=== PATIENT | male | born 1970 | race American Indian/Alaskan Native ===

== ENCOUNTER 2021-03-12 12:24 | Emergency (ER) | payer OTHER ==
[2021-03-12 12:52] VITALS: BP 133/88
[2021-03-12] MEDS ORDERED: ONDANSETRON 4 MG/2 ML INJ IV ONE (13:18)
[2021-03-12] MEDS ORDERED: MORPHINE 4 MG/1 ML INJ IV ONE (13:18)
[2021-03-12] MEDS ORDERED: SODIUM CHLORIDE 0.9% 1000 ML 1,000 ML IV ONE (13:18)
[2021-03-12 14:16] LABS: Bilirubin,Urine NEG (Negative); Blood,Urine NEG (Negative); Color,Urine Yellow (Yellow); Mucus,Urine 2+ /HPF
[2021-03-12 14:21] LABS: Basophils % (Auto) 0.6 % (0.0-1.8); Eosinophils % (Auto) 0.3 % (0.0-4.3); Hematocrit 43.3 % (35.5-45.6); Hemoglobin 14.9 gm/dl (11.8-15.2); Lymphocytes % (Auto) 19.2 % (13.4-35.0); Mean Corpuscular HGB Conc 34 % (32-34); Mean Corpuscular Volume 94 fl (84-94); Monocytes # (Auto) 0.2 K/mm3 (0.0-0.8); Monocytes % (Auto) 4.3 % (0.0-7.3); Platelet Count 152 K/mm3 (140-440); Red Blood Count 4.62 M/mm3 (3.65-5.03); Red Cell Distribution Width 13.4 % (13.2-15.2)
--- NOTE | 2021-03-12 14:33 | Emergency Department Report ---
ED General Adult HPI - General Chief complaint: Nausea/Vomiting/Diarrhea Stated complaint: VOMITING ALL MORNING Time Seen by Provider: 03/12/21 13:16 Source: patient Mode of arrival: Ambulatory Limitations: No Limitations - History of Present Illness Initial comments: Patient is a 51-year-old male presents emergency room complaints of generalized abdominal pain that began around 7 AM this morning. He has associated nausea and vomiting. He states he has had multiple episodes of vomiting. He states he had approximately 2 episodes of diarrhea. He denies any fever, hematochezia, melena, hematemesis, urinary symptoms, dysuria, urinary retention, pain or swelling in the testicles, back pain, penile discharge. Past medical history of HIV and is on his antivirals and reports that he is undetectable. No allergies to medications. Severity scale (0 -10): 4 - Related Data Previous Rx's Medication Instructions Recorded Last Taken Type Hyoscyamine Subl [Levsin Sl 0.125 0.125 mg SL Q6HR PRN #10 tab 03/12/21 Unknown Rx TAB] Ondansetron [Zofran Odt] 4 mg PO Q8HR PRN #10 tab.rapdis 03/12/21 Unknown Rx Allergies Allergy/AdvReac Type Severity Reaction Status Date / Time No Known Allergies Allergy Unverified 03/12/21 12:40 ED Review of Systems ROS: Stated complaint: VOMITING ALL MORNING Other details as noted in HPI Comment: All other systems reviewed and negative ED Past Medical Hx - Past Medical History Previous Medical History?: No - Surgical History Past Surgical History?: No - Medications Home Medications: Home Medications Medication Instructions Recorded Confirmed Last Taken Type Hyoscyamine Subl [Levsin Sl 0.125 0.125 mg SL Q6HR PRN #10 tab 03/12/21 Unknown Rx TAB] Ondansetron [Zofran Odt] 4 mg PO Q8HR PRN #10 tab.rapdis 03/12/21 Unknown Rx ED Physical Exam - General Limitations: No Limitations General appearance: alert, in no apparent distress - Head Head exam: Present: atraumatic, normocephalic - Eye Eye exam: Present: normal appearance - ENT ENT exam: Present: mucous membranes dry (mildly) - Respiratory Respiratory exam: Present: normal lung sounds bilaterally. Absent: respiratory distress, wheezes, rales, rhonchi, stridor, chest wall tenderness, accessory muscle use, decreased breath sounds, prolonged expiratory - Cardiovascular Cardiovascular Exam: Present: regular rate, normal rhythm, normal heart sounds. Absent: systolic murmur, diastolic murmur, rubs, gallop - GI/Abdominal GI/Abdominal exam: Present: soft, tenderness (generalized upper), normal bowel sounds. Absent: distended, guarding, rebound, rigid - Neurological Exam Neurological exam: Present: alert, oriented X3 - Psychiatric Psychiatric exam: Present: normal affect, normal mood - Skin Skin exam: Present: warm, dry, intact ED Course Vital Signs 03/12/21 03/12/21 12:42 17:08 Temperature 97.6 F 98.4 F Pulse Rate 61 89 Respiratory 18 16 Rate Blood Pressure 133/88 O2 Sat by Pulse 99 99 Oximetry ED Medical Decision Making - Lab Data Result diagrams: 03/12/21 14:02 03/12/21 14:02 Lab Results 03/12/21 03/12/21 03/12/21 Range/Units 13:48 14:02 14:02 WBC 5.4 (4.5-11.0) K/mm3 RBC 4.62 (3.65-5.03) M/mm3 Hgb 14.9 (11.8-15.2) gm/dl Hct 43.3 (35.5-45.6) % MCV 94 (84-94) fl MCH 32 (28-32) pg MCHC 34 (32-34) % RDW 13.4 (13.2-15.2) % Plt Count 152 (140-440) K/mm3 Lymph % (Auto) 19.2 (13.4-35.0) % Andrew % (Auto) 4.3 (0.0-7.3) % Eos % (Auto) 0.3 (0.0-4.3) % Baso % (Auto) 0.6 (0.0-1.8) % Lymph # (Auto) 1.0 L (1.2-5.4) K/mm3 Andrew # (Auto) 0.2 (0.0-0.8) K/mm3 Eos # (Auto) 0.0 (0.0-0.4) K/mm3 Baso # (Auto) 0.0 (0.0-0.1) K/mm3 Seg Neutrophils % 75.6 H (40.0-70.0) % Seg Neutrophils # 4.1 (1.8-7.7) K/mm3 Sodium 138 (137-145) mmol/L Potassium 3.5 L (3.6-5.0) mmol/L Chloride 103.6 (98-107) mmol/L Carbon Dioxide 23 (22-30) mmol/L Anion Gap 15 mmol/L BUN 18 (9-20) mg/dL Creatinine 0.9 (0.8-1.3) mg/dL Estimated GFR > 60 ml/min BUN/Creatinine Ratio 20 % Glucose 104 H (75-100) mg/dL Calcium 9.2 (8.4-10.2) mg/dL Total Bilirubin 0.40 (0.1-1.2) mg/dL AST 28 (5-40) units/L ALT 16 (7-56) units/L Alkaline Phosphatase 56 (35-129) units/L Total Protein 7.1 (6.3-8.2) g/dL Albumin 3.9 (3.9-5) g/dL Albumin/Globulin Ratio 1.2 % Lipase 25 (13-60) units/L Urine Color Yellow (Yellow) Urine Turbidity Clear (Clear) Urine pH 9.0 H (5.0-7.0) Ur Specific [place] 1.025 (1.003-1.030) Urine Protein 100 mg/dl (Negative) mg/dL Urine Glucose (UA) Neg (Negative) mg/dL Urine Ketones 20 (Negative) mg/dL Urine Blood Neg (Negative) Urine Nitrite Neg (Negative) Urine Bilirubin Neg (Negative) Urine Urobilinogen 2.0 (<2.0) mg/dL Ur Leukocyte Esterase Neg (Negative) Urine WBC (Auto) 2.0 (0.0-6.0) /HPF Urine RBC (Auto) 13.0 (0.0-6.0) /HPF U Epithel Cells (Auto) < 1.0 (0-13.0) /HPF Urine Mucus 2+ /HPF - Radiology Data Radiology results: report reviewed Ordering Physician: BOB MENDOZA Date of Service: 03/12/21 Procedure(s): CT abdomen pelvis w con Accession Number(s): [id number] cc: BOB MENDOZA CT OF THE ABDOMEN AND PELVIS WITH INTRAVENOUS CONTRAST INDICATION / CLINICAL INFORMATION: Mid abdominal pain with nausea and vomiting. TECHNIQUE: The patient received 100 cc Omnipaque [address] scans at this location are performed using CT dose reduction for ALARA by means of automated exposure control. COMPARISON: None available. FINDINGS: ABDOMEN: There is a 1.9 cm ovoid simple cyst in the right lobe of the liver. The spleen, gallbladder, bile ducts, pancreas, adrenal glands, kidneys and bowel demonstrate no significant abnormality. No adenopathy is present. The lung bases are clear. PELVIS: The distal ureters, urinary bladder, prostate gland and seminal vesicles are normal. There is no evidence of appendicitis or diverticulitis. No abnormal mass or fluid collection is seen. I do not identify a hernia. No acute osseous abnormality is present. IMPRESSION: No acute abnormality is identified. Signer Name: Rufus Marroquin MD Signed: 03/12/2021 3:24 PM Workstation Name: [id number] Transcribed By: RT Dictated By: Rufus Marroquin MD Electronically Authenticated By: Rufus Marroquin MD Signed Date/Time: 03/12/21 152 DD/ 20 TD/TT: Print - Medical Decision Making Patient is a 51-year-old male presents emergency room complaints of generalized abdominal pain that began around 7 AM this morning. He has associated nausea a nd vomiting. He states he has had multiple episodes of vomiting. He states he had approximately 2 episodes of diarrhea. He denies any fever, hematochezia, melena, hematemesis, urinary symptoms, dysuria, urinary retention, pain or swelling in the testicles, back pain, penile discharge. Past medical history of HIV and is on his antivirals and reports that he is undetectable. No allergies to medications. Vitals are stable. On exam patient has generalized abdominal tenderness, no guarding, no rebound, no rigidity, normal bowel sounds, no peritoneal signs. Labs showed very mild hypokalemia, given 20 mEq of K-Dur otherwise labs are stable. UA is within normal limits. CT abdomen pelvis: IMPRESSION: No acute abnormality is identified. Patient given medications on the emergent department and symptoms significantly improved, he was feeling much better ready to go home, he was able to tolerate p.o. intake without any difficulty, he had no further episodes of vomiting while in the emergency department. Discussed all results with patient and answer questions. Discussed the importance of follow-up for reexamination. Discussed strict return precautions. Patient given prescription for medications. advised patient Please take medication as prescribed as needed. Increase your fluid intake. Eat a bland liquid diet and still advance her diet as tolerated. Follow-up with your primary care doctor for reexamination. Return to emergency room immediately for any new or worsening symptoms. Critical care attestation.: If time is entered above; I have spent that time in minutes in the direct care of this critically ill patient, excluding procedure time. ED Disposition Clinical Impression: Nausea vomiting and diarrhea, Hypokalemia Disposition: TO HOME OR SELFCARE Is pt being admited?: No Does the pt Need Aspirin: No Condition: Stable Instructions: Viral Gastroenteritis, Adult, Hypokalemia Additional Instructions: Please take medication as prescribed as needed. Increase your fluid intake. Eat a bland liquid diet and still advance her diet as tolerated. Follow-up with your primary care doctor for reexamination. Return to emergency room imme diately for any new or worsening symptoms. Prescriptions: Hyoscyamine Subl [Levsin Sl 0.125 TAB] 0.125 mg SL Q6HR PRN #10 tab PRN Reason: abd cramping/diarrhea Ondansetron [Zofran Odt] 4 mg PO Q8HR PRN #10 tab.rapdis PRN Reason: nausea/vomiting Referrals: PRIMARY MD STEPHANE [Primary Care Provider] - 2-3 Days ALANNA OCHOA MD [Staff Physician] - 2-3 Days [facility] [Provider Group] - 2-3 Days Time of Disposition: 16:18 Print Language: WALLISIAN
[2021-03-12 14:36] LABS: Alanine Aminotransferase 16 units/L (7-56); Albumin 3.9 g/dL (3.9-5); BUN/Creatinine Ratio 20; Blood Urea Nitrogen 18 mg/dL (9-20); Calcium 9.2 mg/dL (8.4-10.2); Hemolysis Index 8
--- NOTE | 2021-03-12 15:29 | Cat Scan Report ---
CT OF THE ABDOMEN AND PELVIS WITH INTRAVENOUS CONTRAST INDICATION / CLINICAL INFORMATION: Mid abdominal pain with nausea and vomiting. TECHNIQUE: The patient received 100 cc Omnipaque [address] scans at this location are performed using CT dose reduction for ALARA by means of automated exposure control. COMPARISON: None available. FINDINGS: ABDOMEN: There is a 1.9 cm ovoid simple cyst in the right lobe of the liver. The spleen, gallbladder, bile ducts, pancreas, adrenal glands, kidneys and bowel demonstrate no significant abnormality. No a denopathy is present. The lung bases are clear. PELVIS: The distal ureters, urinary bladder, prostate gland and seminal vesicles are normal. There is no evidence of appendicitis or diverticulitis. No abnormal mass or fluid collection is seen. I do no t identify a hernia. No acute osseous abnormality is present. IMPRESSION: No acute abnormality is identified. Signer Name: Rufus Marroquin MD Signed: 03/12/2021 3:24 PM Workstation Name: [id number]
[2021-03-12] MEDS ORDERED: POTASSIUM CHLORIDE ER 20 MEQ TAB PO ONE (15:33)
== END 2021-03-12 17:09 | disposition home or self-care (01) ==
LOC: ED 12:24
DX: E87.6 Hypokalemia (principal); R19.7 Diarrhea, unspecified; R11.2 Nausea with vomiting, unspecified; Z79.899 Other long term (current) drug therapy
CPT/HCPCS: 36415; 74177; 80053; 81001; 83690; 85025; 96361; 96374; 96375; 99284; J2270; J2405; J7030; Q9967

== ENCOUNTER 2021-03-13 09:16 | Observation (INO) | payer OTHER ==
[2021-03-13] MEDS ORDERED: DICYCLOMINE 20 MG/2 ML INJ IM ONE (09:56)
[2021-03-13] MEDS ORDERED: LIDOCAINE VISCOUS 2% 15 ML ORAL LIQD PO ONE (09:56)
[2021-03-13] MEDS ORDERED: PANTOPRAZOLE 40 MG INJ IV ONE (09:56)
[2021-03-13] MEDS ORDERED: ALUM-MAG HYDROXIDE-SIMETHICONE 200-200-20MG/5ML ORAL LIQD 30 ML PO ONE (09:56)
[2021-03-13] MEDS ORDERED: ONDANSETRON 4 MG/2 ML INJ IV ONE (09:56)
[2021-03-13] MEDS ORDERED: SODIUM CHLORIDE 0.9% 1000 ML 1,000 ML IV ONE (09:58)
--- NOTE | 2021-03-13 10:01 | Emergency Department Report ---
ED Abdominal Pain HPI - General Chief Complaint: Nausea/Vomiting/Diarrhea Stated Complaint: STOMACH PAIN/ SOB Time Seen by Provider: 03/13/21 09:49 Source: patient Mode of arrival: Wheelchair Limitations: No Limitations - History of Present Illness Initial Comments: Patient is 51 years old male with h/o HIV. Patient presented to the ER complaining of epigastric abdominal pain, rated as 10 out of 10, sharp with no radiation. Patient also complaining of nausea and vomiting. Patient denied any fever or chills. Patient was seen here yesterday for same complaint. His labs was unremarkable except for ketones in the urine. Patient also had a CT abdomen and pelvis that showed no acute abnormalities. Patient returns today stating that his symptoms getting worse and he is not feeling better. MD Complaint: abdominal pain -: days(s) Location: epigastric Radiation: none Migration to: no migration Severity: severe Severity scale (0 -10): 8 Quality: sharp Associated Symptoms: nausea, vomiting. denies: diarrhea - Related Data Previous Rx's Medication Instructions Recorded Last Taken Type Hyoscyamine Subl [Levsin Sl 0.125 0.125 mg SL Q6HR PRN #10 tab 03/12/21 Unknown Rx TAB] Ondansetron [Zofran Odt] 4 mg PO Q8HR PRN #10 tab.rapdis 03/12/21 Unknown Rx Allergies Allergy/AdvReac Type Severity Reaction Status Date / Time No Known Allergies Allergy Verified 03/13/21 09:34 ED Review of Systems ROS: Stated complaint: STOMACH PAIN/ SOB Other details as noted in HPI Comment: All other systems reviewed and negative Constitutional: denies: chills, fever Respiratory: denies: cough, shortness of breath, SOB with exertion Cardiovascular: denies: chest pain, palpitations Gastrointestinal: abdominal pain, nausea, vomiting. denies: diarrhea, constipation, hematemesis, melena, hematochezia Musculoskeletal: denies: back pain Neurological: denies: headache, weakness, numbness, paresthesias, confusion ED Past Medical Hx - Past Medical History Previous Medical History?: No - Surgical History Past Surgical History?: No - Medications Home Medications: Home Medications Medication Instructions Recorded Confirmed Last Taken Type Hyoscyamine Subl [Levsin Sl 0.125 0.125 mg SL Q6HR PRN #10 tab 03/12/21 Unknown Rx TAB] Ondansetron [Zofran Odt] 4 mg PO Q8HR PRN #10 tab.rapdis 03/12/21 Unknown Rx ED Physical Exam - General Limitations: No Limitations General appearance: alert, in distress - Head Head exam: Present: atraumatic, normocephalic, normal inspection - Eye Eye exam: Present: normal appearance, PERRL - ENT ENT exam: Present: mucous membranes dry - Neck Neck exam: Present: normal inspection, full ROM. Absent: tenderness, meningismus - Respiratory Respiratory exam: Present: normal lung sounds bilaterally - Cardiovascular Cardiovascular Exam: Present: regular rate, normal rhythm, normal heart sounds - GI/Abdominal GI/Abdominal exam: Present: soft, normal bowel sounds. Absent: distended, tenderness, guarding, rebound, rigid, organomegaly, mass, bruit, pulsatile mass, hernia - Extremities Exam Extremities exam: Present: normal inspection, full ROM, normal capillary refill. Absent: tenderness, pedal edema, calf tenderness - Back Exam Back exam: Present: normal inspection, full ROM. Absent: CVA tenderness (R), CVA tenderness (L) - Neurological Exam Neurological exam: Present: alert, oriented X3, CN II-XII intact, normal gait, reflexes normal. Absent: motor sensory deficit - Psychiatric Psychiatric exam: Present: normal mood - Skin Skin exam: Present: warm, dry, intact, normal color ED Course Vital Signs 03/13/21 09:37 Temperature 98.6 F Pulse Rate 87 Respiratory 20 Rate Blood Pressure 113/88 O2 Sat by Pulse 99 Oximetry - Consultations Consultation #1: 03/13/21 10:40 I discussed the patient with Dr. Darden, surgeon decorating consultant and he advised to order a CT abdomen and pelvis with IV and p.o. contrast. He is ED Medical Decision Making - Lab Data Result diagrams: 03/13/21 09:59 03/13/21 09:59 - Radiology Data Radiology results: report reviewed - Medical Decision Making Patient is 51 years old male with h/o HIV. Patient presented to the ER complaining of epigastric abdominal pain, rated as 10 out of 10, sharp with no radiation. Patient also complaining of nausea and vomiting. Patient denied any fever or chills. Patient was seen here yesterday for same complaint. His labs was unremarkable except for ketones in the urine. Patient also had a CT abdomen and pelvis that showed no acute abnormalities. Patient returns today stating that his symptoms getting worse and he is not feeling better. Patient received Protonix, Zosyn, Zofran and normal saline. Patient also received morphine. Labs reviewed and showed a leukocytosis of 14.9. Patient abdomen is rigid. Acute abdominal x-ray series showed small pneumoperitoneum. I discussed the patient with Dr. Darden, surgeon decorating consultant. He advised to re order a CT abdomen and pelvis with IV and p.o. contrast. I discussed the results with Dr. Darden, he advised to admit the patient to the hospitalist, n.p.o., Zosyn and NG tube. Patient discussed with Dr. Ramirez, He agreed to admit the patient to medical service for further management. Critical Care Time: Yes Critical care time in (mins) excluding proc time.: 30 Critical care attestation.: If time is entered above; I have spent that time in minutes in the direct care of this critically ill patient, excluding procedure time. ED Disposition Clinical Impression: Acute abdominal pain, Peptic ulcer, acute with perforation, Acute peritonitis Disposition: DC-09 OP ADMIT IP TO THIS HOSP Is pt being admited?: Yes Condition: Stable Referrals: PRIMARY CARE,MD [Primary Care Provider] - 3-5 Days
[2021-03-13 10:13] LABS: Basophils % (Auto) 0.2 % (0.0-1.8); Hematocrit 50.5 % (35.5-45.6); Hemoglobin 17.1 gm/dl (11.8-15.2); Lymphocytes # (Auto) 1.7 K/mm3 (1.2-5.4); Lymphocytes % (Auto) 11.6 % (13.4-35.0); Mean Corpuscular HGB Conc 34 % (32-34); Mean Corpuscular Volume 94 fl (84-94); Monocytes # (Auto) 0.8 K/mm3 (0.0-0.8); Monocytes % (Auto) 5.6 % (0.0-7.3); Platelet Count 220 K/mm3 (140-440); Red Blood Count 5.36 M/mm3 (3.65-5.03); Red Cell Distribution Width 13.4 % (13.2-15.2)
--- NOTE | 2021-03-13 10:26 | XRay Report ---
ABDOMEN 3 VIEW(S) INDICATION / CLINICAL INFORMATION: Abdominal pain. COMPARISON: CT of the abdomen and pelvis performed yesterday. FINDINGS: TUBES / LINES: None. BOWEL GAS PATTERN: I see no evidence of bowel obstruction or mass effect. FREE AIR / EXTRALUMINAL GAS: There is a small amount of free air underneath both hemidiaphragms. ADDITIONAL FINDINGS: There are nonspecific calcifications in the lower pelvis bilaterally. Mild thora columbar scoliosis is present. CHEST: Visualized chest shows no significant abnormality. IMPRESSION: Small pneumoperitoneum is new since yesterday. Signer Name: Rufus Marroquin MD Signed: 03/13/2021 10:22 AM Workstation Name: [id number]
[2021-03-13 10:37] LABS: Alanine Aminotransferase 20 units/L (7-56); Albumin 4.3 g/dL (3.9-5); BUN/Creatinine Ratio 18; Blood Urea Nitrogen 24 mg/dL (9-20); Calcium 9.6 mg/dL (8.4-10.2); Hemolysis Index 13
[2021-03-13] MEDS ORDERED: PIPERACILLIN/TAZOBACTAM 3.375 3.375 GM/50 ML BAG IV ONE (10:39)
[2021-03-13] MEDS ORDERED: MORPHINE 4 MG/1 ML INJ IV ONE (12:12)
[2021-03-13 12:21] LABS: Bilirubin,Urine NEG (Negative); Blood,Urine SM (Negative); Color,Urine Amber (Yellow); Mucus,Urine 3+ /HPF
--- NOTE | 2021-03-13 12:21 | Cat Scan Report ---
CT OF THE ABDOMEN AND PELVIS WITH INTRAVENOUS CONTRAST INDICATION / CLINICAL INFORMATION: Abdominal pain. TECHNIQUE: The patient received 100 cc Omnipaque [address] scans at this location are performed using CT dose reduction for ALARA by means of automated exposure control. COMPARISON: Yesterday. FINDINGS: ABDOMEN: A small pneumoperitoneum is new. Mild generalized ascites was also not present previously. N o extraluminal contrast is seen. No cause for the bowel perforation is identified. I see no evidence of bowel obstruction or wall thickening. There is a small cyst in the right lobe of the liver, unchanged. Increased density of the gallbladder is consistent with vicarious excretion of contrast. There are small calcified granulomata in the spl een. The bile ducts, pancreas, adrenal glands and kidneys are normal. PELVIS: There is mild pelvic ascites. The distal ureters, urinary bladder, prostate gland and seminal vesicles are normal. I see no evidence of appendicitis or diverticulitis. There is a tiny fat-contai renee periumbilical hernia. No acute osseous abnormality is present. IMPRESSION: Interval development of a small pneumoperitoneum and mild generalized ascites. No cause f or the bowel perforation is seen. Peptic ulcer disease is favored due to the distribution of the pneu moperitoneum. Signer Name: Rufus Marroquin MD Signed: 03/13/2021 12:17 PM Workstation Name: [id number]
--- NOTE | 2021-03-13 12:42 | History and Physical Report ---
History of Present Illness Chief complaint: My stomach is killing me History of present illness: 51 YO Male with HIV on Antiretroviral therapy with Undetectable Viral load presents to ED for evaluation. Patient reports "my stomach is clammy". Patient states that he has experienced pain in his abdomen over the past 2 days with persistent and worsening symptoms over the same timeframe. Patient states the pain is 10 out of 10, constant, diffuse, associated with nausea, associated with multiple episodes of vomiting. Patient transported to [facility] via private vehicle for further care and evaluation of the aforementioned symptoms. The patient was seen and evaluated in the emergency department. All lab and image studies reviewed. Patient with CT scan of the abdomen and pelvis and was found to have pneumoperitoneum as well as clinical findings consistent with bowel perforation complicated by peritonitis. Surgical team consulted in ED. Patient admitted to surgical floor. Patient treated with IV fluid resuscitation therapy, bowel rest, as well as nasogastric decompression as per surgical team recommendations. Patient denies fever, chills, chest pain, palpitation, productive cough, skin rash, recent ill contacts, ingestion of food/water from new or different sources, bright red blood per rectum, hematemesis, bowel habit changes, recent ill contacts, or known exposure to COVID-19. No prior admission for review. No medication listed at time of admission for reconciliation. Past History Past Medical History: HIV/AIDS Past Surgical History: No surgical history, Other (Reviewed) Social history: single. denies: smoking, alcohol abuse, prescription drug abuse Family history: hypertension Medications and Allergies Allergies Allergy/AdvReac Type Severity Reaction Status Date / Time No Known Allergies Allergy Verified 03/13/21 09:34 Home Medications Medication Instructions Recorded Confirmed Last Taken Type Hyoscyamine Subl [Levsin Sl 0.125 0.125 mg SL Q6HR PRN #10 tab 03/12/21 Unknown Rx TAB] Ondansetron [Zofran Odt] 4 mg PO Q8HR PRN #10 tab.rapdis 03/12/21 Unknown Rx Review of Systems Constitutional: no weight loss, no weight gain, no fever, no chills, no sweats Ears, nose, mouth and throat: no ear pain, no tinnitis, no decreased hearing, no nose pain, no nasal congestion Cardiovascular: no chest pain, no palpitations, no edema, no syncope Respiratory: no cough, no cough with sputum, no hemoptysis, no shortness of breath Gastrointestinal: abdominal pain, nausea, vomiting, no hematemesis, no coffee ground emesis, no BRBPR, no melena, no hematochezia Genitourinary Male: no hematuria, no flank pain, no discharge, no urinary frequency, no urinary hesitancy, no nocturia Rectal: no pain, no incontinence, no bleeding Musculoskeletal: no neck stiffness, no shooting arm pain, no arm numbness/tingling, no low back pain, no shooting leg pain, no leg numbne ss/tingling Integumentary: no rash, no pruritis, no redness, no wounds, no jaundice Neurological: no head injury, no paralysis, no weakness, no tingling, no seizures, no syncope, no ataxia, no lack of coordination Psychiatric: no anxiety, no memory loss, no sleep disturbances, no hypersomnia, no disorientation Endocrine: no cold intolerance, no polyphagia, no excessive thirst, no polydipsia, no polyuria Hematologic/Lymphatic: no easy bruising, no easy bleeding, no lymphadenopathy Allergic/Immunologic: no allergic rhinitis, no persistent infections, no anaphylaxis Exam - Constitutional Vitals: Temp Pulse Resp BP Pulse Ox 98.6 F 87 20 113/88 99 03/13/21 09:37 03/13/21 09:37 03/13/21 09:37 03/13/21 09:37 03/13/21 09:37 General appearance: Present: mild distress, cachectic - EENT Eyes: Present: PERRL ENT: hearing intact, clear oral mucosa - Neck Neck: Present: supple, normal ROM - Respiratory Respiratory effort: normal Respiratory: bilateral: CTA - Cardiovascular Heart Sounds: Present: S1 & S2. Absent: rub, click - Extremities Extremities: pulses symmetrical, No edema Peripheral Pulses: within normal limits - Abdominal General gastrointestinal: Present: soft, tender, non-distended, hypoactive bowel sounds. Absent: hepatomegaly, splenomegaly, mass, hernia Localized gastrointestinal: tender: diffuse Male genitourinary: Present: normal - Integumentary Integumentary: Present: clear, warm, dry - Musculoskeletal Musculoskeletal: gait normal, strength equal bilaterally - Psychiatric Psychiatric: appropriate mood/affect, intact judgment & insight - Neurologic Neurologic: CNII-XII intact, moves all extremities Results - Labs CBC & Chem 7: 03/13/21 09:59 03/13/21 09:59 Labs: Abnormal lab results 03/13/21 03/13/21 03/13/21 Range/Units 09:46 09:59 09:59 WBC 14.5 H (4.5-11.0) K/mm3 RBC 5.36 H (3.65-5.03) M/mm3 Hgb 17.1 H (11.8-15.2) gm/dl Hct 50.5 H D (35.5-45.6) % Lymph % (Auto) 11.6 L (13.4-35.0) % Seg Neutrophils % 82.6 H (40.0-70.0) % Seg Neutrophils # 12.0 H (1.8-7.7) K/mm3 BUN 24 H (9-20) mg/dL Glucose 183 H (75-100) mg/dL Lipase 143 H (13-60) units/L Ur Specific [place] 1.041 H (1.003-1.030) Assessment and Plan - Patient Problems (1) Peptic ulcer, acute with perforation Current Visit: Yes Status: Acute Plan to address problem: Surgical team consulted, CT scan abdomen and pelvis, supportive care, serial physical exam, further management as per surgical team (2) Intractable nausea and vomiting Current Visit: Yes Status: Acute Plan to address problem: Antiemetic therapy, supportive care, bowel rest, IV fluid resuscitation therapy. (3) HIV disease Current Visit: Yes Status: Acute Plan to address problem: Continue prehospital antiretroviral therapy, outpatient infectious disease follow-up. (4) Acute peritonitis Current Visit: Yes Status: Acute Plan to address problem: Pain control, supportive care, CT scan abdomen pelvis, surgical intervention as per surgical team. Further care management as per surgical team. (5) DVT prophylaxis Current Visit: Yes Status: Acute Plan to address problem: SCD to bilateral lower extremities while in bed, patient is ambulatory
[2021-03-13] MEDS ORDERED: ALBUTEROL 2.5 MG/3 ML NEBU IH PRN (13:30)
[2021-03-13] MEDS ORDERED: ACETAMINOPHEN 325 MG TAB PO PRN (13:30)
[2021-03-13] MEDS ORDERED: oxyCODONE /ACETAMINOPHEN 5-325MG TAB PO PRN (13:30)
--- NOTE | 2021-03-13 15:29 | Consultation ---
History of Present Illness Consult date: 03/13/21 Reason for consult: abdominal pain - History of present illness History of present illness: 51 yo male with 2 day h/o epigastric/RUQ pain with nausea, vomiting and possible hematemesis. No fever, chills, melena or hematochezia. He denies any h/o PUD or any significant use of NSAID's. No prior h/o diverticulitis. His pain is n ow improved c/w ER presentation. He last received IV pain meds 2.5 hours prior to my evaluation. Past History Past Medical History: HIV/AIDS, other (H/o broken septum) Past Surgical History: No surgical history, Other (Reviewed) Social history: single. denies: smoking, alcohol abuse, prescription drug abuse Family history: hypertension Medications and Allergies Allergies Allergy/AdvReac Type Severity Reaction Status Date / Time No Known Allergies Allergy Verified 03/13/21 09:34 Home Medications Medication Instructions Recorded Confirmed Last Taken Type Hyoscyamine Subl [Levsin Sl 0.125 0.125 mg SL Q6HR PRN #10 tab 03/12/21 Unknown Rx TAB] Ondansetron [Zofran Odt] 4 mg PO Q8HR PRN #10 tab.rapdis 03/12/21 Unknown Rx Active Meds: Active Medications Acetaminophen (Acetaminophen 325 Mg Tab) 650 mg PO Q4H PRN PRN Reason: Pain MILD(1-3)/Fever >100.5/LANDERS Albuterol (Albuterol 2.5 Mg/3 Ml Nebu) 2.5 mg IH Q4HRT PRN PRN Reason: Shortness Of Breath Famotidine (Famotidine 20 Mg/2 Ml Inj) 10 mg IV BID HESHAM Hydromorphone HCl (Hydromorphone 1 Mg/1 Ml Inj) 0.5 mg IV Q6H PRN PRN Reason: Pain , Severe (7-10) Sodium Chloride (Nacl 0.9% 1000 Ml) 1,000 mls @ 125 mls/hr IV DIRECT HESHAM Ondansetron HCl (Ondansetron 4 Mg/2 Ml Inj) 4 mg IV Q8H PRN PRN Reason: Nausea And Vomiting Oxycodone/Acetaminophen (Oxycodone /Acetaminophen 5-325mg Tab) 1 tab PO Q12H PRN PRN Reason: Pain, Moderate (4-6) Sodium Chloride (Sodium Chloride 0.9% 10 Ml Flush Syringe) 10 ml IV BID HESHAM Sodium Chloride (Sodium Chloride 0.9% 10 Ml Flush Syringe) 10 ml IV PRN PRN PRN Reason: LINE FLUSH Review of Systems All systems: negative (none) Exam Vital Signs Temp Pulse Resp BP Pulse Ox 98.6 F 87 20 113/88 99 03/13/21 09:37 03/13/21 09:37 03/13/21 09:37 03/13/21 09:37 03/13/21 09:37 - General physical appearance Positive: well developed, well nourished, no distress - Eyes Positive: PERRL, normal occular movement - ENT Positive: normal pinna, normal nares, normal mucosa, no hearing loss, no congestion - Neck Positive: no masses, no bruits, trachea midline, no venous distension - Respiratory Positive: normal expansion, normal respiratory effort, clear to auscultation - Cardiovascular Rhythm: regular Heart Sounds: Present: S1 & S2. Absent: rub, click - Extremities Extremities: no ischemia, pulses symmetrical, No edema - Breasts Breasts: normal, no mass, no skin changes - Abdomen Abdomen: Present: soft, bowel sounds hypoactive, other (Mild tenderness in the RUQ without rebound or guarding.). Absent: distended Hernia: none - Genitourinary Male Genitourinary: normal Female Genitourinary: normal - Integumentary no rash, no growths, no abnormal pigmentation - Neurologic Neurologic: alert and oriented to time, place and person, motor strength and sensation are grossly intact - Musculoskeletal normal gait, normal posture - Psychiatric Psychiatric: appropriate mood/affect, intact judgment & insight Results - Labs 03/13/21 09:59 03/13/21 09:59 Abnormal lab results 03/13/21 03/13/21 03/13/21 Range/Units 09:46 09:59 09:59 WBC 14.5 H (4.5-11.0) K/mm3 RBC 5.36 H (3.65-5.03) M/mm3 Hgb 17.1 H (11.8-15.2) gm/dl Hct 50.5 H D (35.5-45.6) % Lymph % (Auto) 11.6 L (13.4-35.0) % Seg Neutrophils % 82.6 H (40.0-70.0) % Seg Neutrophils # 12.0 H (1.8-7.7) K/mm3 BUN 24 H (9-20) mg/dL Glucose 183 H (75-100) mg/dL Lipase 143 H (13-60) units/L Ur Specific [place] 1.041 H (1.003-1.030) Diabetes panel 03/13/21 Range/Units 09:59 Sodium 141 (137-145) mmol/L Potassium 3.6 (3.6-5.0) mmol/L Chloride 99.3 (98-107) mmol/L Carbon Dioxide 26 (22-30) mmol/L BUN 24 H (9-20) mg/dL Creatinine 1.3 (0.8-1.3) mg/dL Glucose 183 H (75-100) mg/dL Calcium 9.6 (8.4-10.2) mg/dL AST 31 (5-40) units/L ALT 20 (7-56) units/L Alkaline Phosphatase 69 (35-129) units/L Total Protein 7.9 (6.3-8.2) g/dL Albumin 4.3 (3.9-5) g/dL Calcium panel 03/13/21 Range/Units 09:59 Calcium 9.6 (8.4-10.2) mg/dL Albumin 4.3 (3.9-5) g/dL Pituitary panel 03/13/21 Range/Units 09:59 Sodium 141 (137-145) mmol/L Potassium 3.6 (3.6-5.0) mmol/L Chloride 99.3 (98-107) mmol/L Carbon Dioxide 26 (22-30) mmol/L BUN 24 H (9-20) mg/dL Creatinine 1.3 (0.8-1.3) mg/dL Glucose 183 H (75-100) mg/dL Calcium 9.6 (8.4-10.2) mg/dL Adrenal panel 03/13/21 Range/Units 09:59 Sodium 141 (137-145) mmol/L Potassium 3.6 (3.6-5.0) mmol/L Chloride 99.3 (98-107) mmol/L Carbon Dioxide 26 (22-30) mmol/L BUN 24 H (9-20) mg/dL Creatinine 1.3 (0.8-1.3) mg/dL Glucose 183 H (75-100) mg/dL Calcium 9.6 (8.4-10.2) mg/dL Total Bilirubin 0.50 (0.1-1.2) mg/dL AST 31 (5-40) units/L ALT 20 (7-56) units/L Alkaline Phosphatase 69 (35-129) units/L Total Protein 7.9 (6.3-8.2) g/dL Albumin 4.3 (3.9-5) g/dL - Imaging Chest x-ray: report reviewed CT scan - abdomen: report reviewed CT scan - pelvis: report reviewed Assessment and Plan - Patient Problems (1) Pneumoperitoneum of unknown etiology Current Visit: Yes Status: Acute Plan to address problem: 1) I personally tried to place an 18 gauge, 16 gauge and 12 gauge NG tube but was unsucessful, mostly b/o inability of the pt to cooperate. Since he is improved, VSS and exam is non-surgical, I believe it is reasonable to admit him for IVF, bowel rest, IV Zosyn and IV Protonix. Pt is aware that an exploratory laparotomy will be necessary if his condition worsens.
[2021-03-13] MEDS: SODIUM CHLORIDE 0.9% 1000 ML 1,000 ML IV SCH (17:36)
[2021-03-13] MEDS: PIPERACILLIN/TAZOBACTAM 3.375 3.375 GM/50 ML BAG IV SCH (17:36)
[2021-03-13] MEDS: ONDANSETRON 4 MG/2 ML INJ IV PRN (17:50)
[2021-03-13] MEDS ORDERED: FAMOTIDINE 20 MG/2 ML INJ IV SCH (22:00)
[2021-03-13] MEDS: ALUM-MAG HYDROXIDE-SIMETHICONE 200-200-20MG/5ML ORAL LIQD 30 ML PO PRN (22:03)
[2021-03-13] MEDS: HYDROmorphone 1 MG/1 ML INJ IV PRN (22:26)
[2021-03-14] MEDS: PIPERACILLIN/TAZOBACTAM 3.375 3.375 GM/50 ML BAG IV SCH (01:43)
[2021-03-14] MEDS: ONDANSETRON 4 MG/2 ML INJ IV PRN (01:48)
[2021-03-14] MEDS: HYDROmorphone 1 MG/1 ML INJ IV PRN (04:05)
[2021-03-14] MEDS: ALUM-MAG HYDROXIDE-SIMETHICONE 200-200-20MG/5ML ORAL LIQD 30 ML PO PRN (04:06)
[2021-03-14 04:29] LABS: Basophils % (Auto) 0.2 % (0.0-1.8); Hematocrit 40.2 % (35.5-45.6); Hemoglobin 13.9 gm/dl (11.8-15.2); Lymphocytes # (Auto) 1.2 K/mm3 (1.2-5.4); Lymphocytes % (Auto) 13.2 % (13.4-35.0); Mean Corpuscular HGB Conc 35 % (32-34); Mean Corpuscular Volume 93 fl (84-94); Monocytes # (Auto) 0.5 K/mm3 (0.0-0.8); Monocytes % (Auto) 5.5 % (0.0-7.3); Platelet Count 136 K/mm3 (140-440); Red Blood Count 4.31 M/mm3 (3.65-5.03); Red Cell Distribution Width 13.3 % (13.2-15.2)
[2021-03-14 04:52] LABS: BUN/Creatinine Ratio 21; Blood Urea Nitrogen 23 mg/dL (9-20); Calcium 8.1 mg/dL (8.4-10.2); Hemolysis Index 7
[2021-03-14] MEDS: SODIUM CHLORIDE 0.9% 1000 ML 1,000 ML IV SCH (06:19)
[2021-03-14] MEDS ORDERED: PANTOPRAZOLE 40 MG INJ IV SCH (10:00)
--- NOTE | 2021-03-14 12:44 | Progress Note ---
Assessment and Plan Assessment and plan: 51 YO Male with HIV on Antiretroviral therapy with Undetectable Viral load presents to ED for evaluation. Patient reports "my stomach is clammy". Patient states that he has experienced pain in his abdomen over the past 2 days with persistent and worsening symptoms over the same timeframe. Patient states the pain is 10 out of 10, constant, diffuse, associated with nausea, associated with multiple episodes of vomiting. Patient transported to [facility] via private vehicle for further care and evaluation of the aforementioned symptoms. The patient was seen and evaluated in the emergency department. All lab and image studies reviewed. Patient with CT scan of the abdomen and pelvis and was found to have pneumoperitoneum as well as clinical findings consistent with bowel perforation complicated by peritonitis. Surgical team consulted in ED. Patient admitted to surgical floor. Patient treated with IV fluid resuscitation therapy, bowel rest, as well as nasogastric decompression as per surgical team recommendations. Patient denies fever, chills, chest pain, palpitation, productive cough, skin rash, recent ill contacts, ingestion of food/water from new or different sources, bright red blood per rectum, hematemesis, bowel habit changes, recent ill contacts, or known exposure to COVID-19. No prior admission for review. No medication listed at time of admission for reconciliation. 03/14: Patient seen and examined, resting comfortable, wants to be discharged, Discussed with surgeon, will like to monitor him one extra day. Anticipate discharge tomorrow if stable. CT/AP: IMPRESSION: Interval development of a small pneumoperitoneum and mild generalized ascites. No cause for the bowel perforation is seen. Peptic ulcer disease is favored due to the distribution of the pneumoperitoneum. - Patient Problems (1) Peptic ulcer, acute with perforation Current Visit: Yes Status: Acute Plan to address problem: Surgical team consulted, CT scan abdomen and pelvis, supportive care, serial physical exam, further management as per surgical team (2) Intractable nausea and vomiting Current Visit: Yes Status: Acute Plan to address problem: Antiemetic therapy, supportive care, bowel rest, IV fluid resuscitation therapy. (3) HIV disease Current Visit: Yes Status: Acute Plan to address problem: Continue prehospital antiretroviral therapy, outpatient infectious disease follow-up. (4) Acute peritonitis Current Visit: Yes Status: Acute Plan to address problem: Pain control, supportive care, CT scan abdomen pelvis, surgical intervention as per surgical team. Further care management as per surgical team. (5) DVT prophylaxis Current Visit: Yes Status: Acute Plan to address problem: SCD to bilateral lower extremities while in bed, patient is ambulatory History Interval history: Patient seen and examined, resting comfortable. states that he had 2 BM today and he knows he feels better. Hospitalist Physical - Physical exam Narrative exam: General appearance: Present:N distress, cachectic - EENT Eyes: Present: PERRL ENT: hearing intact, clear oral mucosa - Neck Neck: Present: supple, normal ROM - Respiratory Respiratory effort: normal Respiratory: bilateral: CTA - Cardiovascular Heart Sounds: Present: S1 & S2. Absent: rub, click - Extremities Extremities: pulses symmetrical, No edema Peripheral Pulses: within normal limits - Abdominal General gastrointestinal: Present: soft, non tender, but tenses his abdomen on exam, non-distended, hypoactive bowel sounds. Absent: hepatomegaly, splenomegaly, mass, hernia Localized gastrointestinal: tender: diffuse Male genitourinary: Present: normal - Integumentary Integumentary: Present: clear, warm, dry - Musculoskeletal Musculoskeletal: gait normal, strength equal bilaterally - Psychiatric Psychiatric: appropriate mood/affect, intact judgment & insight - Neurologic Neurologic: CNII-XII intact, moves all extremities - Constitutional Vitals: Temp Pulse Resp BP Pulse Ox 98.1 F 78 18 116/79 98 03/14/21 07:41 03/14/21 07:41 03/14/21 07:41 03/14/21 07:41 03/14/21 09:04 General appearance: Present: mild distress, cachectic Results - Labs CBC & Chem 7: 03/14/21 04:13 03/14/21 04:13 Labs: Laboratory Last Values WBC 9.4 K/mm3 (4.5-11.0) 03/14/21 04:13 RBC 4.31 M/mm3 (3.65-5.03) 03/14/21 04:13 Hgb 13.9 gm/dl (11.8-15.2) D 03/14/21 04:13 Hct 40.2 % (35.5-45.6) D 03/14/21 04:13 MCV 93 fl (84-94) 03/14/21 04:13 MCH 32 pg (28-32) 03/14/21 04:13 MCHC 35 % (32-34) H 03/14/21 04:13 RDW 13.3 % (13.2-15.2) 03/14/21 04:13 Plt Count 136 K/mm3 (140-440) L 03/14/21 04:13 Lymph % (Auto) 13.2 % (13.4-35.0) L 03/14/21 04:13 [place] % (Auto) 5.5 % (0.0-7.3) 03/14/21 04:13 Eos % (Auto) 0.0 % (0.0-4.3) 03/14/21 04:13 Baso % (Auto) 0.2 % (0.0-1.8) 03/14/21 04:13 Lymph # (Auto) 1.2 K/mm3 (1.2-5.4) 03/14/21 04:13 [place] # (Auto) 0.5 K/mm3 (0.0-0.8) 03/14/21 04:13 Eos # (Auto) 0.0 K/mm3 (0.0-0.4) 03/14/21 04:13 Baso # (Auto) 0.0 K/mm3 (0.0-0.1) 03/14/21 04:13 Seg Neutrophils % 81.1 % (40.0-70.0) H 03/14/21 04:13 Seg Neutrophils # 7.6 K/mm3 (1.8-7.7) 03/14/21 04:13 Sodium 140 mmol/L (137-145) 03/14/21 04:13 Potassium 3.8 mmol/L (3.6-5.0) 03/14/21 04:13 Chloride 107.1 mmol/L (98-107) H 03/14/21 04:13 Carbon Dioxide 25 mmol/L (22-30) 03/14/21 04:13 Anion Gap 12 mmol/L 03/14/21 04:13 BUN 23 mg/dL (9-20) H 03/14/21 04:13 Creatinine 1.1 mg/dL (0.8-1.3) 03/14/21 04:13 Estimated GFR > 60 ml/min 03/14/21 04:13 BUN/Creatinine Ratio 21 % 03/14/21 04:13 Glucose 105 mg/dL (75-100) H 03/14/21 04:13 Calcium 8.1 mg/dL (8.4-10.2) L D 03/14/21 04:13 Total Bilirubin 0.50 mg/dL (0.1-1.2) 03/13/21 09:59 AST 31 units/L (5-40) 03/13/21 09:59 ALT 20 units/L (7-56) 03/13/21 09:59 Alkaline Phosphatase 69 units/L (35-129) 03/13/21 09:59 Total Protein 7.9 g/dL (6.3-8.2) 03/13/21 09:59 Albumin 4.3 g/dL (3.9-5) 03/13/21 09:59 Albumin/Globulin Ratio 1.2 % 03/13/21 09:59 Lipase 143 units/L (13-60) H 03/13/21 09:59 Urine Color [place] (Yellow) 03/13/21 09:46 Urine Turbidity Clear (Clear) 03/13/21 09:46 Urine pH 5.0 (5.0-7.0) 03/13/21 09:46 Ur Specific [place] 1.041 (1.003-1.030) H 03/13/21 09:46 Urine Protein 100 mg/dl mg/dL (Negative) 03/13/21 09:46 Urine Glucose (UA) 50 mg/dL (Negative) 03/13/21 09:46 Urine Ketones 20 mg/dL (Negative) 03/13/21 09:46 Urine Blood Sm (Negative) 03/13/21 09:46 Urine Nitrite Neg (Negative) 03/13/21 09:46 Urine Bilirubin Neg (Negative) 03/13/21 09:46 Urine Urobilinogen 2.0 mg/dL (<2.0) 03/13/21 09:46 Ur Leukocyte Esterase Neg (Negative) 03/13/21 09:46 Urine WBC (Auto) 2.0 /HPF (0.0-6.0) 03/13/21 09:46 Urine RBC (Auto) 6.0 /HPF (0.0-6.0) 03/13/21 09:46 U Epithel Cells (Auto) < 1.0 /HPF (0-13.0) 03/13/21 09:46 Urine Mucus 3+ /HPF 03/13/21 09:46 Microbiology: Microbiology 03/13/21 10:45 Peripheral/Venous Blood Culture - Preliminary Culture in Progress 03/13/21 10:45 Peripheral/Venous Blood Culture - Preliminary Culture in Progress Farah/IV: Voiding Method Toilet Active Medications - Current Medications Current Medications: Generic Name Dose Route Start Last Admin Trade Name Freq PRN Reason Stop Dose Admin Acetaminophen 650 mg 03/13/21 13:30 Acetaminophen 325 Mg Tab PO Q4H PRN Pain MILD(1-3)/Fever >100.5/[place] Al Hydrox/Mg Hydrox/Simethicone 30 ml 03/13/21 21:50 03/14/21 04:06 Alum-Mag Hydroxide-Simethicone [id number]/5ml Oral Liqd 30 Ml PO 30 ml Q6HR PRN Administration Indigestion Albuterol 2.5 mg 03/13/21 13:30 Albuterol 2.5 Mg/3 Ml Nebu IH Q4HRT PRN Shortness Of Breath Hydromorphone HCl 0.5 mg 03/13/21 13:30 03/14/21 04:05 Hydromorphone 1 Mg/1 Ml Inj IV 0.5 mg Q6H PRN Administration Pain , Severe (7-10) Sodium Chloride 1,000 mls @ 125 mls/hr 03/13/21 13:30 03/14/21 06:19 Nacl 0.9% 1000 Ml IV 125 mls/hr DIRECT HESHAM Administration Piperacillin Sod/Tazobactam Sod 3.375 gm in 50 mls @ 100 mls/hr 03/13/21 16:30 03/14/21 01:43 Zosyn/Ns 3.375gm/50ml IV 100 mls/hr Q8H HESHAM Administration Protocol Ondansetron HCl 4 mg 03/13/21 13:30 03/14/21 01:48 Ondansetron 4 Mg/2 Ml Inj IV 4 mg Q8H PRN Administration Nausea And Vomiting Oxycodone/Acetaminophen 1 tab 03/13/21 13:30 Oxycodone /Acetaminophen 5-325mg Tab PO Q12H PRN Pain, Moderate (4-6) Pantoprazole Sodium 40 mg 03/14/21 10:00 Pantoprazole 40 Mg Inj IV DAILY HESHAM Sodium Chloride 10 ml 03/13/21 22:00 03/13/21 22:03 Sodium Chloride 0.9% 10 Ml Flush Syringe IV 10 ml BID HESHAM Administration Sodium Chloride 10 ml 03/13/21 13:30 Sodium Chloride 0.9% 10 Ml Flush Syringe IV PRN PRN LINE FLUSH
--- NOTE | 2021-03-14 14:07 | Progress Note ---
Assessment and Plan - Patient Problems (1) Pneumoperitoneum of unknown etiology Current Visit: Yes Status: Acute Plan to address problem: 1) Pt came to [facility] while I was rounding complaining that no one had seen him today. When Dr. Dowling told the pt "I just saw you." the pt said "And what did you do? Your didn't do nothing." I tried to tell the pt that I would come see him in a few minutes but he became increasingly belligerent and even threatening to Dr. Dowling and myself. He then went back to [facility] and left AMA. I told the nurses to call Security and tell them that if the pt re-presents to the ED, he needs to be re-evaluated through the ER for change in mental status and also checked for dangerous weapons as again, he was threatening to myself, Dr. Dowling and the nursing staff. Subjective Date of service: 03/14/21 Objective Vital Signs - 12hr 03/14/21 03/14/21 03/14/21 03:28 07:41 09:04 Temperature 99.0 F 98.1 F Pulse Rate 64 78 Respiratory 18 18 Rate Blood Pressure 100/72 116/79 O2 Sat by Pulse 97 97 98 Oximetry - Labs 03/14/21 04:13 03/14/21 04:13 Diabetes panel 03/14/21 Range/Units 04:13 Sodium 140 (137-145) mmol/L Potassium 3.8 (3.6-5.0) mmol/L Chloride 107.1 H (98-107) mmol/L Carbon Dioxide 25 (22-30) mmol/L BUN 23 H (9-20) mg/dL Creatinine 1.1 (0.8-1.3) mg/dL Glucose 105 H (75-100) mg/dL Calcium 8.1 L D (8.4-10.2) mg/dL Calcium panel 03/14/21 Range/Units 04:13 Calcium 8.1 L D (8.4-10.2) mg/dL Pituitary panel 03/14/21 Range/Units 04:13 Sodium 140 (137-145) mmol/L Potassium 3.8 (3.6-5.0) mmol/L Chloride 107.1 H (98-107) mmol/L Carbon Dioxide 25 (22-30) mmol/L BUN 23 H (9-20) mg/dL Creatinine 1.1 (0.8-1.3) mg/dL Glucose 105 H (75-100) mg/dL Calcium 8.1 L D (8.4-10.2) mg/dL Adrenal panel 03/14/21 Range/Units 04:13 Sodium 140 (137-145) mmol/L Potassium 3.8 (3.6-5.0) mmol/L Chloride 107.1 H (98-107) mmol/L Carbon Dioxide 25 (22-30) mmol/L BUN 23 H (9-20) mg/dL Creatinine 1.1 (0.8-1.3) mg/dL Glucose 105 H (75-100) mg/dL Calcium 8.1 L D (8.4-10.2) mg/dL
[2021-03-14 15:23] VITALS: BP 112/69
== END 2021-03-14 13:45 | disposition left against medical advice (07) ==
LOC: ED 09:16 → INTOOBSV 12:46 → 3B 12:46
PROVIDERS: ADMIT Internal Medicine; ATTEND Internal Medicine
DX: K27.1 Acute peptic ulcer, site unspecified, with perforation (principal); K65.9 Peritonitis, unspecified; K66.8 Other specified disorders of peritoneum; F17.210 Nicotine dependence, cigarettes, uncomplicated; Z21 Asymptomatic human immunodeficiency virus [HIV] infection status
CPT/HCPCS: 36415; 74022; 74177; 80048; 80053; 81001; 83690; 85025; 87040; 96361; 96365; 96366; 96372; 96375; 96376; 99291; 99406; C9113; G0378; J0500; J1170; J2270; J2405; J2543; J7030; Q9967; 96374